=== PATIENT | female | born 1985 | race Caucasian/White ===

== ENCOUNTER 2019-09-03 15:45 | Emergency (ER) | payer SELFPAY ==
[~2019-09-03] VITALS: Ht 157.5 cm; Wt 52.6 kg
[2019-09-03] MEDS ORDERED: ACETAMINOPHEN 650 mg PER 20 mL UD PO ONE (16:15)
[2019-09-03 16:24] VITALS: BP 114/68
[2019-09-03] MEDS ORDERED: CLINDAMYCIN 600MG IV 50 ML IV ONE (16:45)
[2019-09-03] MEDS ORDERED: LIDOCAINE 1% HCL (LOCAL ANESTH.) INJ 20ML MDV IJ ONE (16:45)
== END 2019-09-03 18:07 | disposition home or self-care (01) ==
LOC: ER 15:45
DX: L02.413 Cutaneous abscess of right upper limb (principal)
CPT/HCPCS: 10060; 96365; 99283; J2001; J3490

== ENCOUNTER 2021-02-22 19:49 | Emergency (ER) | payer MEDICAID, OTHER ==
[~2021-02-22] VITALS: Ht 157.5 cm; Wt 61.7 kg
[2021-02-22] MEDS ORDERED: IPRATROPIUM BROM 0.5 MG/2.5ML INH SOL NEB ONE (20:30)
[2021-02-22] MEDS ORDERED: ALBUTEROL SULF 2.5 MG/0.5ML(0.5%) NEB SOLN NEB ONE (20:30)
[2021-02-22 21:30] VITALS: BP 120/81
[2021-02-22] MEDS ORDERED: DexAMETHasone SOD PHOS 10MG/1ML VIAL INJ PO ONE (21:45)
== END 2021-02-22 23:00 | disposition home or self-care (01) ==
LOC: ER 19:51
DX: J45.909 Unspecified asthma, uncomplicated (principal)
CPT/HCPCS: 71046; 94640; 99283; J1100; J7644

== ENCOUNTER 2021-04-01 12:23 | Emergency (ER) | payer MEDICAID ==
[~2021-04-01] VITALS: Ht 157.5 cm; Wt 59.9 kg
[2021-04-01] MEDS ORDERED: methylPREDNISolone SOD SUCC 125 MG/2 ML VL IM ONE (12:30)
[2021-04-01] MEDS ORDERED: IPRATROPIUM BROM 0.5 MG/2.5ML INH SOL NEB ONE (12:30)
[2021-04-01] MEDS ORDERED: ALBUTEROL SULF 2.5 MG/0.5ML(0.5%) NEB SOLN NEB ONE ×2 (12:30→16:15)
[2021-04-01 12:38] VITALS: BP 115/68
== END 2021-04-01 17:05 | disposition left against medical advice (07) ==
LOC: ER 12:23
DX: J45.901 Unspecified asthma with (acute) exacerbation (principal)
CPT/HCPCS: 94640; 94644; 96372; 99285; J2930; J7644

== ENCOUNTER 2021-06-15 17:26 | Emergency (ER) | payer MEDICAID ==
[~2021-06-15] VITALS: Ht 157.5 cm; Wt 54.9 kg
[2021-06-15 17:36] VITALS: BP 124/88
== END 2021-06-16 00:17 | disposition left against medical advice (07) ==
LOC: ER 17:26
DX: Z76.0 Encounter for issue of repeat prescription (principal); Z53.21 Procedure and treatment not carried out due to patient leaving prior to being seen by health care provider